=== PATIENT | male | born 1990 | race Two or more races ===

== ENCOUNTER 2024-08-01 12:28 | Emergency (ER) | payer MEDICAID ==
[~2024-08-01] VITALS: Ht 170.2 cm; Wt 99.8 kg
[2024-08-01 12:40] VITALS: BP 162/112; TEMP 98.6; O2SAT 99
== END 2024-08-01 14:34 | disposition left against medical advice (07) ==
LOC: ER 12:45
DX: S51.811A Laceration without foreign body of right forearm, initial encounter (principal); Z53.21 Procedure and treatment not carried out due to patient leaving prior to being seen by health care provider; W45.8XXA Other foreign body or object entering through skin, initial encounter; Y93.89 Activity, other specified; Y92.098 Other place in other non-institutional residence as the place of occurrence of the external cause; Y99.8 Other external cause status